=== PATIENT | male | born 1995 | race African-American/Black ===

== ENCOUNTER 2020-04-08 06:30 | Inpatient (IN) | payer MEDICAID, SELFPAY ==
[~2020-04-08] VITALS: Ht 172.7 cm; Wt 73.0 kg
[2020-04-08 08:08] VITALS: BP_SYST 143
[2020-04-08] MEDS ORDERED: KETOROLAC TROMETHAMINE 30 MG VIAL IVP ONE (08:30)
[2020-04-08] MEDS ORDERED: ONDANSETRON HCL 4 MG/2 ML VIAL IVP ONE (08:30)
[2020-04-08] MEDS ORDERED: NACL 0.9% 1,000 ML IV ONE (08:30)
[2020-04-08 09:16] LABS: BASOPHILS # (AUTO) 0.1 K/uL (0.0-0.2); EOSINOPHILS % (AUTO) 0.1 % (0.0-4.0); HEMATOCRIT 57.9 % (36-54); HEMOGLOBIN 18.1 g/dL (14.0-18.0); LYMPHOCYTES # (AUTO) 0.8 K/uL (1.0-5.5); MEAN CORPUSCULAR HEMOGLOBIN 29 pg (27-31); MEAN CORPUSCULAR HGB CONC 31 % (32-36); MEAN CORPUSCULAR VOLUME 92 fL (79.0-98.0); MONOCYTES # (AUTO) 0.5 K/uL (0.0-1.0); MONOCYTES % (AUTO) 5.5 % (1.7-9.3); NEUTROPHILS # (AUTO) 8.1 K/uL (1.8-7.7); NEUTROPHILS % (AUTO) 85.4 % (40.0-70.0); PLATELET COUNT (AUTO) 278 K/uL (130-430); RED CELL DISTRIBUTION WIDTH 13.2 % (9.0-15.0); WHITE BLOOD COUNT (AUTO) 9.5 K/uL (4.8-10.8)
[2020-04-08 09:29] LABS: CALCIUM 10.2 mg/dL (8.4-11.0); CREATININE 1.96 mg/dL (0.55-1.30); POTASSIUM 5.3 mmol/L (3.5-5.1)
[2020-04-08 09:41] LABS: ALBUMIN 4.6 g/dL (3.4-4.8); TOTAL BILIRUBIN 0.5 mg/dL (0.0-1.0)
[2020-04-08] MEDS ORDERED: SODIUM BICARBONATE 8.4% JECT 50 MEQ/50 ML SYRINGE ONE (09:44)
[2020-04-08] MEDS ORDERED: SODIUM BICARBONATE 8.4% JECT 50 MEQ/50 ML SYRINGE IVP ONE (09:45)
[2020-04-08] MEDS ORDERED: PIPERACILLIN/TAZO 3.375 GM in NS 50 ML IV ONE (10:00)
[2020-04-08] MEDS ORDERED: PIPERACILLIN/TAZOBACTAM 3.375 GM/VIAL (ZOSYN) IV ONE (10:13)
[2020-04-08] MEDS ORDERED: INSULIN REGULAR, HUMAN 100 UNITS in NS 99 ML IV ONE ×2 (10:30)
[2020-04-08] MEDS ORDERED: INSULIN REGULAR, HUMAN 10 UNITS/0.1 ML INJ IVP ONE (10:30)
[2020-04-08] MEDS ORDERED: NACL 0.9% 2,000 ML IV ONE (10:45)
[2020-04-08 11:17] LABS: BILIRUBIN,URINE NEGATIVE (NEGATIVE); BLOOD, URINE 1+ (NEGATIVE); CLARITY/URINE CLEAR (CLEAR); COLOR,URINE YELLOW (YELLOW); GLUCOSE,URINE 3+ (NEGATIVE); KETONES,URINE 3+ (NEGATIVE); LEUKOCYTE ESTERASE ,URINE NEGATIVE (NEGATIVE); NITRITE, URINE NEGATIVE (NEGATIVE); PROTEIN URINE 2+ (NEGATIVE); UROBILINOGEN,URINE 0.2 (0.2-1.0)
[2020-04-08 11:26] LABS: BACTERIA,URINE FEW /HPF (None Seen); WBC,URINE 0-3 /HPF (0-3)
[2020-04-08] MEDS ORDERED: ONDANSETRON HCL 4 MG/2 ML VIAL ONE (12:56)
[2020-04-08] MEDS ORDERED: ONDANSETRON HCL 4 MG/2 ML VIAL IM ONE (13:00)
[2020-04-08] MEDS ORDERED: DIPHENHYDRAMINE INJ 50 MG/ML VIAL IVP ONE (14:15)
[2020-04-08] MEDS ORDERED: PROCHLORPERAZINE EDISYLATE 10 MG/2 ML VIAL IVP ONE (14:15)
[2020-04-08] MEDS ORDERED: NALOXONE HCL 0.4 MG/ML AMP (NARCAN) IVP PRN ×2 (14:30)
[2020-04-08] MEDS ORDERED: HYDROcodone/ACETAMIN 10-325 MG TAB PO PRN (14:30)
[2020-04-08] MEDS ORDERED: HYDROcodone/ACETAMIN 5-325 MG TAB (NORCO/ VICODIN) PO PRN (14:30)
[2020-04-08] MEDS: NACL 0.9% 1,000 ML IV SCH ×2 (16:40→19:03)
[2020-04-08] MEDS: PIPERACILLIN/TAZO 3.375/DEX-IS 50 ML IV SCH ×2 (18:55→22:42)
[2020-04-08] MEDS: METOCLOPRAMIDE HCL 10 MG/2 ML VIAL IVP SCH ×2 (18:55→22:42)
[2020-04-09] MEDS ORDERED: SODIUM BICARBONATE 8.4% JECT 50 MEQ/50 ML SYRINGE ONE (01:14)
[2020-04-09] MEDS ORDERED: METOCLOPRAMIDE HCL 10 MG/2 ML VIAL ONE ×2 (05:32→12:22)
[2020-04-09] MEDS: METOCLOPRAMIDE HCL 10 MG/2 ML VIAL IVP SCH ×3 (05:43→18:13)
[2020-04-09] MEDS: PIPERACILLIN/TAZO 3.375/DEX-IS 50 ML IV SCH ×3 (05:44→18:12)
[2020-04-09 10:02] LABS: BASOPHILS % (AUTO) 0.4 % (0.0-2.0); HEMOGLOBIN 15.3 g/dL (14.0-18.0); LYMPHOCYTES # (AUTO) 1.4 K/uL (1.0-5.5); LYMPHOCYTES % (AUTO) 17.1 % (20.5-51.5); MEAN CORPUSCULAR HEMOGLOBIN 28 pg (27-31); MEAN CORPUSCULAR HGB CONC 33 % (32-36); MONOCYTES # (AUTO) 1.1 K/uL (0.0-1.0); MONOCYTES % (AUTO) 13.6 % (1.7-9.3); NEUTROPHILS # (AUTO) 5.6 K/uL (1.8-7.7); NEUTROPHILS % (AUTO) 68.9 % (40.0-70.0); PLATELET COUNT (AUTO) 213 K/uL (130-430); RED BLOOD CELL COUNT(AUTO) 5.41 MIL/uL (4.2-6.2); RED CELL DISTRIBUTION WIDTH 12.9 % (9.0-15.0); WHITE BLOOD COUNT (AUTO) 8.2 K/uL (4.8-10.8)
[2020-04-09 10:05] LABS: MEAN CORPUSCULAR VOLUME 87 fL (79.0-98.0)
[2020-04-09 10:24] LABS: ALBUMIN 3.2 g/dL (3.4-4.8); CALCIUM 8.2 mg/dL (8.4-11.0); CREATININE 1.27 mg/dL (0.55-1.30); PHOSPHORUS 2.4 mg/dL (2.7-4.5); POTASSIUM 3.5 mmol/L (3.5-5.1); TOTAL BILIRUBIN 0.4 mg/dL (0.0-1.0)
[2020-04-09] MEDS ORDERED: SODIUM BICARBONATE 8.4% IV ONE ×3 (11:30)
[2020-04-09] MEDS ORDERED: JECT IV ONE ×3 (11:30)
[2020-04-09] MEDS ORDERED: NS 0.45% IV ONE ×3 (11:30)
[2020-04-09] MEDS ORDERED: HYDROcodone/ACETAMIN 5-325 MG TAB (NORCO/ VICODIN) ONE (12:33)
[2020-04-09] MEDS: NACL 0.9% 1,000 ML IV SCH (13:35)
[2020-04-09] MEDS ORDERED: INSULIN Lispro 100 UNITS/ML VIAL (humaLOG) ONE (14:56)
[2020-04-09] MEDS ORDERED: INSULIN REGULAR, HUMAN 100 UNITS in NS 99 ML IV PRN ×2 (16:15)
[2020-04-09] MEDS ORDERED: MORPHINE 2 MG/ML INJ. SYRINGE ONE (16:20)
[2020-04-09] MEDS: MORPHINE 2 MG/ML INJ. SYRINGE IVP PRN (17:09)
[2020-04-09] MEDS ORDERED: PIPERACILLIN/TAZOBACTAM 3.375 GM/VIAL (ZOSYN) IV ONE (18:02)
[2020-04-10] MEDS ORDERED: PIPERACILLIN/TAZOBACTAM 3.375 GM/VIAL (ZOSYN) IV ONE (00:34)
[2020-04-10] MEDS ORDERED: METOCLOPRAMIDE HCL 10 MG/2 ML VIAL ONE ×2 (00:35→05:43)
[2020-04-10] MEDS: METOCLOPRAMIDE HCL 10 MG/2 ML VIAL IVP SCH ×5 (00:58→23:38)
[2020-04-10] MEDS: PIPERACILLIN/TAZO 3.375/DEX-IS 50 ML IV SCH ×4 (00:59→18:05)
[2020-04-10 05:11] LABS: BASOPHILS % (AUTO) 0.5 % (0.0-2.0); HEMATOCRIT 45.7 % (36-54); HEMOGLOBIN 14.8 g/dL (14.0-18.0); LYMPHOCYTES % (AUTO) 11.6 % (20.5-51.5); MEAN CORPUSCULAR HEMOGLOBIN 29 pg (27-31); MEAN CORPUSCULAR HGB CONC 32 % (32-36); MEAN CORPUSCULAR VOLUME 88 fL (79.0-98.0); MONOCYTES # (AUTO) 1.1 K/uL (0.0-1.0); NEUTROPHILS # (AUTO) 6.7 K/uL (1.8-7.7); NEUTROPHILS % (AUTO) 75.9 % (40.0-70.0); PLATELET COUNT (AUTO) 171 K/uL (130-430); RED CELL DISTRIBUTION WIDTH 13.1 % (9.0-15.0); WHITE BLOOD COUNT (AUTO) 8.8 K/uL (4.8-10.8)
[2020-04-10 05:25] LABS: ANION GAP 25 (5-15); C-REACTIVE PROTEIN QUANT < 0.2 mg/dL (0-0.5); CALCIUM 7.7 mg/dL (8.4-11.0); CHLORIDE 102 mmol/L (98-107); CREATININE 1.32 mg/dL (0.55-1.30); GLUCOSE 214 mg/dL (70-99); PHOSPHORUS 1.9 mg/dL (2.7-4.5); POTASSIUM 3.8 mmol/L (3.5-5.1); SODIUM SERUM 139 mmol/L (136-145); UREA NITROGEN, BLOOD 7 mg/dL (8-21)
[2020-04-10 05:29] LABS: GFR AFRICAN AMERICAN 86 mL/min (>90)
[2020-04-10] MEDS ORDERED: LORazepam 2 MG/ML VIAL ONE (05:43)
[2020-04-10] MEDS: LORazepam 2 MG/ML VIAL IVP PRN (05:57)
[2020-04-10] MEDS: NACL 0.9% 1,000 ML IV SCH ×3 (05:58→15:41)
[2020-04-10 06:23] LABS: ERYTHROCYTE SEDIMENTATION RATE 7 MM/HR (0-15)
[2020-04-10] MEDS ORDERED: ONDANSETRON HCL 4 MG/2 ML VIAL ONE (09:48)
[2020-04-10] MEDS: ONDANSETRON HCL 4 MG/2 ML VIAL IVP PRN ×2 (09:52→21:00)
[2020-04-10] MEDS ORDERED: NA PHOS 30 MM in NS 250 ML IV ONE (16:00)
[2020-04-10 17:01] VITALS: BP_SYST 128
[2020-04-10] MEDS: INSULIN REGULAR, HUMAN 100 UNITS/ML, 10 ML VIAL (humuLIN R) SUBCUT PRN ×2 (18:07→20:47)
[2020-04-10 20:00] VITALS: BP_SYST 127
[2020-04-11] VITALS (13 sets, daily range): BP systolic 119–139
[2020-04-11] MEDS: MORPHINE 2 MG/ML INJ. SYRINGE IVP PRN ×2 (01:10→17:32)
[2020-04-11] MEDS: NACL 0.9% 1,000 ML IV SCH ×3 (02:30→20:36)
[2020-04-11] MEDS: PIPERACILLIN/TAZO 3.375/DEX-IS 50 ML IV SCH ×4 (05:00→22:48)
[2020-04-11] MEDS: LORazepam 2 MG/ML VIAL IVP PRN ×4 (05:00→18:14)
[2020-04-11] MEDS: INSULIN REGULAR, HUMAN 100 UNITS/ML, 10 ML VIAL (humuLIN R) SUBCUT PRN ×3 (06:45→14:06)
[2020-04-11] MEDS: METOCLOPRAMIDE HCL 10 MG/2 ML VIAL IVP SCH ×3 (06:55→18:11)
[2020-04-11 08:20] LABS: BASOPHILS % (AUTO) 0.2 % (0.0-2.0); HEMATOCRIT 49.9 % (36-54); HEMOGLOBIN 15.9 g/dL (14.0-18.0); LYMPHOCYTES # (AUTO) 0.4 K/uL (1.0-5.5); LYMPHOCYTES % (AUTO) 4.1 % (20.5-51.5); MEAN CORPUSCULAR HEMOGLOBIN 29 pg (27-31); MEAN CORPUSCULAR HGB CONC 32 % (32-36); MEAN CORPUSCULAR VOLUME 90 fL (79.0-98.0); MONOCYTES % (AUTO) 10.1 % (1.7-9.3); NEUTROPHILS # (AUTO) 8.3 K/uL (1.8-7.7); NEUTROPHILS % (AUTO) 85.6 % (40.0-70.0); PLATELET COUNT (AUTO) 170 K/uL (130-430); RED BLOOD CELL COUNT(AUTO) 5.55 MIL/uL (4.2-6.2); RED CELL DISTRIBUTION WIDTH 13.4 % (9.0-15.0); WHITE BLOOD COUNT (AUTO) 9.7 K/uL (4.8-10.8)
[2020-04-11 08:37] LABS: ALANINE AMINOTRANSFERASE 22 U/L (12-78); ALBUMIN 3.5 g/dL (3.4-4.8); ANION GAP 31 (5-15); ASPARTATE AMINOTRANSFERASE 17 U/L (10-37); CALCIUM 8.2 mg/dL (8.4-11.0); CHLORIDE 100 mmol/L (98-107); CREATININE 1.27 mg/dL (0.55-1.30); GLUCOSE 271 mg/dL (70-99); POTASSIUM 4.5 mmol/L (3.5-5.1); SODIUM SERUM 136 mmol/L (136-145); TOTAL BILIRUBIN 0.3 mg/dL (0.0-1.0); UREA NITROGEN, BLOOD 9 mg/dL (8-21)
[2020-04-11 08:54] LABS: C-REACTIVE PROTEIN QUANT 2.6 mg/dL (0-0.5)
[2020-04-11 09:06] LABS: GFR AFRICAN AMERICAN 90 mL/min (>90)
[2020-04-11] MEDS: ONDANSETRON HCL 4 MG/2 ML VIAL IVP PRN (10:15)
[2020-04-11] MEDS ORDERED: NACL 0.9% 1,000 ML IV ONE (10:30)
[2020-04-11] MEDS ORDERED: DEXTROSE 50% JECT 50 ML DISP.SYRIN IVP PRN (11:30)
[2020-04-11] MEDS ORDERED: SODIUM BICARBONATE 8.4% JECT 50 MEQ/50 ML SYRINGE IVP ONE (12:45)
[2020-04-11 13:04] LABS: BASOPHILS # (AUTO) 0.1 K/uL (0.0-0.2); BASOPHILS % (AUTO) 0.6 % (0.0-2.0); HEMATOCRIT 51.2 % (36-54); HEMOGLOBIN 16.2 g/dL (14.0-18.0); LYMPHOCYTES # (AUTO) 0.8 K/uL (1.0-5.5); LYMPHOCYTES % (AUTO) 7.6 % (20.5-51.5); MEAN CORPUSCULAR HEMOGLOBIN 28 pg (27-31); MEAN CORPUSCULAR HGB CONC 32 % (32-36); MEAN CORPUSCULAR VOLUME 90 fL (79.0-98.0); MONOCYTES # (AUTO) 0.9 K/uL (0.0-1.0); MONOCYTES % (AUTO) 8.7 % (1.7-9.3); NEUTROPHILS # (AUTO) 8.3 K/uL (1.8-7.7); NEUTROPHILS % (AUTO) 83.1 % (40.0-70.0); PLATELET COUNT (AUTO) 169 K/uL (130-430); RED BLOOD CELL COUNT(AUTO) 5.72 MIL/uL (4.2-6.2); RED CELL DISTRIBUTION WIDTH 13.5 % (9.0-15.0)
[2020-04-11 13:31] LABS: ERYTHROCYTE SEDIMENTATION RATE 12 MM/HR (0-15)
[2020-04-11 13:36] LABS: ALANINE AMINOTRANSFERASE 26 U/L (12-78); ALBUMIN 3.3 g/dL (3.4-4.8); ANION GAP 28 (5-15); ASPARTATE AMINOTRANSFERASE 14 U/L (10-37); CALCIUM 8.1 mg/dL (8.4-11.0); CHLORIDE 104 mmol/L (98-107); CREATININE 1.27 mg/dL (0.55-1.30); GLUCOSE 258 mg/dL (70-99); POTASSIUM 4.3 mmol/L (3.5-5.1); SODIUM SERUM 137 mmol/L (136-145); TOTAL BILIRUBIN 0.5 mg/dL (0.0-1.0); UREA NITROGEN, BLOOD 11 mg/dL (8-21)
[2020-04-11 13:37] LABS: GFR AFRICAN AMERICAN 90 mL/min (>90)
[2020-04-11 13:44] LABS: ACETONE, SERUM POSITIVE (NEGATIVE)
[2020-04-11 14:20] LABS: BILIRUBIN,URINE NEGATIVE (NEGATIVE); BLOOD, URINE 1+ (NEGATIVE); CLARITY/URINE CLEAR (CLEAR); GLUCOSE,URINE 2+ (NEGATIVE); KETONES,URINE 3+ (NEGATIVE); LEUKOCYTE ESTERASE ,URINE NEGATIVE (NEGATIVE); NITRITE, URINE NEGATIVE (NEGATIVE); PROTEIN URINE 2+ (NEGATIVE); UROBILINOGEN,URINE 0.2 (0.2-1.0)
[2020-04-11 14:22] LABS: COLOR,URINE STRAW (YELLOW)
[2020-04-11 14:44] LABS: BACTERIA,URINE None Seen /HPF (None Seen); COARSE GRANULAR CASTS,URINE 0-10 /LPF (None Seen); WBC,URINE 0-3 /HPF (0-3)
[2020-04-11] MEDS: INSULIN REGULAR, HUMAN 100 UNITS in NS 99 ML IV PRN ×4 (16:00→21:31)
[2020-04-11] MEDS: MORPHINE 4 MG/ML INJ. SYRINGE IVP PRN (16:31)
[2020-04-11 20:14] LABS: CALCIUM 8.5 mg/dL (8.4-11.0); CREATININE 1.23 mg/dL (0.55-1.30)
[2020-04-11] MEDS ORDERED: PIPERACILLIN/TAZOBACTAM 3.375 GM/VIAL (ZOSYN) IV ONE (22:13)
[2020-04-12] VITALS (30 sets, daily range): BP systolic 65–147
[2020-04-12 01:25] LABS: CREATININE 1.41 mg/dL (0.55-1.30); POTASSIUM 4.3 mmol/L (3.5-5.1)
[2020-04-12] MEDS: NACL 0.9% 1,000 ML IV SCH (02:26)
[2020-04-12] MEDS: PIPERACILLIN/TAZO 3.375/DEX-IS 50 ML IV SCH ×4 (04:28→22:09)
[2020-04-12] MEDS: INSULIN REGULAR, HUMAN 100 UNITS in NS 99 ML IV PRN ×6 (04:29→22:46)
[2020-04-12] MEDS: METOCLOPRAMIDE HCL 10 MG/2 ML VIAL IVP SCH ×4 (05:53→18:27)
[2020-04-12 07:46] LABS: BASOPHILS % (AUTO) 0.3 % (0.0-2.0); HEMATOCRIT 43.3 % (36-54); HEMOGLOBIN 13.8 g/dL (14.0-18.0); LYMPHOCYTES # (AUTO) 0.8 K/uL (1.0-5.5); LYMPHOCYTES % (AUTO) 6.8 % (20.5-51.5); MEAN CORPUSCULAR HEMOGLOBIN 28 pg (27-31); MEAN CORPUSCULAR HGB CONC 32 % (32-36); MEAN CORPUSCULAR VOLUME 88 fL (79.0-98.0); MONOCYTES # (AUTO) 1.4 K/uL (0.0-1.0); MONOCYTES % (AUTO) 12.9 % (1.7-9.3); NEUTROPHILS # (AUTO) 8.9 K/uL (1.8-7.7); PLATELET COUNT (AUTO) 142 K/uL (130-430); RED BLOOD CELL COUNT(AUTO) 4.91 MIL/uL (4.2-6.2); RED CELL DISTRIBUTION WIDTH 13.2 % (9.0-15.0); WHITE BLOOD COUNT (AUTO) 11.1 K/uL (4.8-10.8)
[2020-04-12 07:54] LABS: ALANINE AMINOTRANSFERASE 15 U/L (12-78); ALBUMIN 2.8 g/dL (3.4-4.8); ANION GAP 24 (5-15); ASPARTATE AMINOTRANSFERASE 15 U/L (10-37); CALCIUM 8.6 mg/dL (8.4-11.0); CHLORIDE 111 mmol/L (98-107); GLUCOSE 242 mg/dL (70-99); PHOSPHORUS 1.4 mg/dL (2.7-4.5); POTASSIUM 3.7 mmol/L (3.5-5.1); SODIUM SERUM 144 mmol/L (136-145); TOTAL BILIRUBIN 0.5 mg/dL (0.0-1.0); UREA NITROGEN, BLOOD 12 mg/dL (8-21)
[2020-04-12 08:11] LABS: GFR AFRICAN AMERICAN 75 mL/min (>90)
[2020-04-12 08:14] LABS: C-REACTIVE PROTEIN QUANT 5.3 mg/dL (0-0.5)
[2020-04-12] MEDS: MORPHINE 4 MG/ML INJ. SYRINGE IVP PRN ×2 (09:44→12:34)
[2020-04-12] MEDS: D5NS 1,000 ML IV SCH ×2 (10:30→16:45)
[2020-04-12] MEDS ORDERED: NOREPINEPHRINE BITARTRATE 4 MG in D5W 246 ML IV PRN (11:45)
[2020-04-12] MEDS ORDERED: *HEPARIN PER PHARMACY XX PRN (11:45)
[2020-04-12 11:48] LABS: ERYTHROCYTE SEDIMENTATION RATE 14 MM/HR (0-15)
[2020-04-12] MEDS ORDERED: NALOXONE HCL 0.4 MG/ML AMP (NARCAN) IVP PRN ×2 (12:30→13:30)
[2020-04-12] MEDS: ACETAMINOPHEN 325 MG TABLET PO PRN ×3 (12:32→22:16)
[2020-04-12 13:15] LABS: CALCIUM 7.5 mg/dL (8.4-11.0); CREATININE 1.85 mg/dL (0.55-1.30); PHOSPHORUS 2.8 mg/dL (2.7-4.5); POTASSIUM 4.1 mmol/L (3.5-5.1)
[2020-04-12] MEDS ORDERED: MORPHINE I.V. DRIP 100 ML IV ONE (13:20)
[2020-04-12] MEDS ORDERED: MORPHINE I.V. DRIP 100 ML IV PRN (13:30)
[2020-04-12] MEDS ORDERED: NOREPINEPHRINE BITARTRATE 4 MG in NS 246 ML IV PRN (13:45)
[2020-04-12] MEDS ORDERED: NOREPINEPHRINE 4 MG/4 ML VIAL IV ONE ×2 (14:15→22:37)
[2020-04-12] MEDS ORDERED: HEPARIN SODIUM,PORCINE 5,000 UNITS/ML VIAL IV ONE (14:30)
[2020-04-12] MEDS ORDERED: HEPARIN SODIUM,PORCINE 3000 UNITS/0.6 ML BOLUS IVP PRN (14:30)
[2020-04-12] MEDS ORDERED: HEPARIN SODIUM,PORCINE 2000 UNITS/0.4 ML BOLUS IVP PRN (14:30)
[2020-04-12] MEDS: DEXAMETHASONE SOD PHOSPHATE 10 MG/ML VIAL IVP SCH (16:38)
[2020-04-12] MEDS ORDERED: NOREPINEPHRINE BITARTRATE 32 MG in NS 218 ML IV PRN (20:30)
[2020-04-12] MEDS: MORPHINE I.V. DRIP 100 ML IV PRN (20:34)
[2020-04-12 22:39] LABS: CREATININE 2.81 mg/dL (0.55-1.30)
[2020-04-12 22:42] LABS: PHOSPHORUS 0.5 mg/dL (2.7-4.5); POTASSIUM 2.9 mmol/L (3.5-5.1)
[2020-04-12] MEDS ORDERED: POTASSIUM CHLORIDE 20 MEQ TAB.PRT.SR PO ONE (23:15)
[2020-04-12] MEDS ORDERED: KCL 40 mEq in 100 mL (PREMIX) 100 ML IV PRN (23:30)
[2020-04-12] MEDS ORDERED: MAGNESIUM SULFATE 50 ML IV PRN (23:30)
[2020-04-12] MEDS ORDERED: POTASSIUM CHLORIDE 20 MEQ TAB.PRT.SR ONE (23:47)
[2020-04-13] VITALS (30 sets, daily range): BP systolic 75–162
[2020-04-13] MEDS: NAPH,MB-DB/K PH,MBDB 250 MG TAB PO PRN (00:10)
[2020-04-13] MEDS: HEPARIN 25,000 UNITS in 250 ML PREMIX IV PRN (00:13)
[2020-04-13] MEDS: D5NS 1,000 ML IV SCH ×4 (00:35→16:59)
[2020-04-13] MEDS: INSULIN REGULAR, HUMAN 100 UNITS in NS 99 ML IV PRN ×6 (00:49→20:24)
[2020-04-13] MEDS: PIPERACILLIN/TAZO 3.375/DEX-IS 50 ML IV SCH ×4 (04:58→20:43)
[2020-04-13] MEDS: METOCLOPRAMIDE HCL 10 MG/2 ML VIAL IVP SCH ×4 (04:59→18:00)
[2020-04-13] MEDS: MORPHINE I.V. DRIP 100 ML IV PRN ×2 (05:01→15:11)
[2020-04-13] MEDS: PROPOFOL DRIP 100 ML IV PRN ×2 (05:21→12:49)
[2020-04-13 07:36] LABS: BASOPHILS % (AUTO) 0.4 % (0.0-2.0); HEMATOCRIT 36.1 % (36-54); HEMOGLOBIN 11.8 g/dL (14.0-18.0); LYMPHOCYTES # (AUTO) 0.7 K/uL (1.0-5.5); LYMPHOCYTES % (AUTO) 6.8 % (20.5-51.5); MEAN CORPUSCULAR HEMOGLOBIN 28 pg (27-31); MEAN CORPUSCULAR HGB CONC 33 % (32-36); MEAN CORPUSCULAR VOLUME 86 fL (79.0-98.0); MONOCYTES # (AUTO) 0.9 K/uL (0.0-1.0); MONOCYTES % (AUTO) 8.3 % (1.7-9.3); NEUTROPHILS % (AUTO) 84.5 % (40.0-70.0); PLATELET COUNT (AUTO) 104 K/uL (130-430); RED BLOOD CELL COUNT(AUTO) 4.17 MIL/uL (4.2-6.2); RED CELL DISTRIBUTION WIDTH 13.2 % (9.0-15.0); WHITE BLOOD COUNT (AUTO) 10.6 K/uL (4.8-10.8)
[2020-04-13 10:47] LABS: ERYTHROCYTE SEDIMENTATION RATE 27 MM/HR (0-15)
[2020-04-13] MEDS: DEXAMETHASONE SOD PHOSPHATE 10 MG/ML VIAL IVP SCH (11:23)
[2020-04-13] MEDS: ACETAMINOPHEN 325 MG TABLET PO PRN (11:31)
[2020-04-13 12:05] LABS: CALCIUM 8.4 mg/dL (8.4-11.0); CREATININE 2.27 mg/dL (0.55-1.30)
[2020-04-13 12:18] LABS: PHOSPHORUS 0.4 mg/dL (2.7-4.5)
[2020-04-13] MEDS ORDERED: COMMUNICATION ORDER XX ONE ×2 (12:45→15:15)
[2020-04-13] MEDS ORDERED: POTASSIUM CHLORIDE 60 MEQ in D5W 500 ML IV SCH (14:00)
[2020-04-13] MEDS ORDERED: POTASSIUM CHLORIDE 20 MEQ/PKT PACKET NG ONE (15:00)
[2020-04-13] MEDS ORDERED: MAGNESIUM SULFATE 50 ML IV ONE (15:00)
[2020-04-13] MEDS ORDERED: K PHOS 30 MM in NS 250 ML IV ONE (16:00)
[2020-04-13 19:12] LABS: CALCIUM 8.2 mg/dL (8.4-11.0); CREATININE 2.04 mg/dL (0.55-1.30)
[2020-04-13] MEDS: NAPH,MB-DB/K PH,MBDB 250 MG TAB PO SCH ×2 (19:44→22:54)
[2020-04-13] MEDS ORDERED: NAPH,MB-DB/K PH,MBDB 250 MG TAB ONE (22:27)
[2020-04-14] VITALS (26 sets, daily range): BP systolic 110–152
[2020-04-14] MEDS: MORPHINE I.V. DRIP 100 ML IV PRN ×2 (00:31→09:13)
[2020-04-14] MEDS: INSULIN REGULAR, HUMAN 100 UNITS in NS 99 ML IV PRN ×8 (00:34→22:17)
[2020-04-14] MEDS: D5NS 1,000 ML IV SCH ×2 (00:35→08:15)
[2020-04-14] MEDS: NAPH,MB-DB/K PH,MBDB 250 MG TAB PO SCH ×4 (04:46→14:02)
[2020-04-14] MEDS: PIPERACILLIN/TAZO 3.375/DEX-IS 50 ML IV SCH ×4 (04:47→22:16)
[2020-04-14] MEDS ORDERED: NAPH,MB-DB/K PH,MBDB 250 MG TAB ONE ×2 (05:02→05:04)
[2020-04-14] MEDS: METOCLOPRAMIDE HCL 10 MG/2 ML VIAL IVP SCH ×4 (05:47→18:00)
[2020-04-14 07:11] LABS: BASOPHILS % (AUTO) 0.2 % (0.0-2.0); EOSINOPHILS % (AUTO) 0.3 % (0.0-4.0); HEMATOCRIT 33.7 % (36-54); LYMPHOCYTES # (AUTO) 1.1 K/uL (1.0-5.5); LYMPHOCYTES % (AUTO) 10.5 % (20.5-51.5); MEAN CORPUSCULAR HEMOGLOBIN 28 pg (27-31); MEAN CORPUSCULAR HGB CONC 33 % (32-36); MEAN CORPUSCULAR VOLUME 86 fL (79.0-98.0); MONOCYTES # (AUTO) 0.9 K/uL (0.0-1.0); NEUTROPHILS # (AUTO) 8.3 K/uL (1.8-7.7); PLATELET COUNT (AUTO) 121 K/uL (130-430); RED CELL DISTRIBUTION WIDTH 13.4 % (9.0-15.0); WHITE BLOOD COUNT (AUTO) 10.4 K/uL (4.8-10.8)
[2020-04-14 08:28] LABS: ALBUMIN 1.9 g/dL (3.4-4.8); CALCIUM 8.4 mg/dL (8.4-11.0); CREATININE 1.58 mg/dL (0.55-1.30); PHOSPHORUS 1.1 mg/dL (2.7-4.5); TOTAL BILIRUBIN 0.3 mg/dL (0.0-1.0)
[2020-04-14] MEDS: PROPOFOL DRIP 100 ML IV PRN ×2 (09:12→18:46)
[2020-04-14] MEDS ORDERED: D5W 500 ML IV ONE (10:45)
[2020-04-14] MEDS: DEXAMETHASONE SOD PHOSPHATE 10 MG/ML VIAL IVP SCH (11:05)
[2020-04-14 11:18] LABS: ERYTHROCYTE SEDIMENTATION RATE 50 MM/HR (0-15)
[2020-04-14] MEDS: LORazepam 2 MG/ML VIAL IVP PRN (11:44)
[2020-04-14 12:23] LABS: C-REACTIVE PROTEIN QUANT 17.1 mg/dL (0-0.5)
[2020-04-14] MEDS: KCL 10 mEq in D5/0.45NS 1000mL 1,000 ML IV SCH ×2 (14:04→19:43)
[2020-04-14] MEDS ORDERED: K PHOS 30 MM in NS 250 ML IV ONE (19:15)
[2020-04-15] VITALS (28 sets, daily range): BP systolic 106–162
[2020-04-15] MEDS: HEPARIN 25,000 UNITS in 250 ML PREMIX IV PRN (00:21)
[2020-04-15] MEDS: PIPERACILLIN/TAZO 3.375/DEX-IS 50 ML IV SCH ×4 (04:59→22:00)
[2020-04-15] MEDS: METOCLOPRAMIDE HCL 10 MG/2 ML VIAL IVP SCH ×4 (06:00→18:01)
[2020-04-15] MEDS: PROPOFOL DRIP 100 ML IV PRN ×2 (06:34→08:23)
[2020-04-15] MEDS: MORPHINE I.V. DRIP 100 ML IV PRN (06:35)
[2020-04-15 07:02] LABS: BASOPHILS # (AUTO) 0.1 K/uL (0.0-0.2); BASOPHILS % (AUTO) 0.5 % (0.0-2.0); EOSINOPHILS % (AUTO) 0.2 % (0.0-4.0); HEMATOCRIT 28.7 % (36-54); HEMOGLOBIN 9.7 g/dL (14.0-18.0); LYMPHOCYTES # (AUTO) 1.1 K/uL (1.0-5.5); LYMPHOCYTES % (AUTO) 11.2 % (20.5-51.5); MEAN CORPUSCULAR HEMOGLOBIN 29 pg (27-31); MEAN CORPUSCULAR HGB CONC 34 % (32-36); MEAN CORPUSCULAR VOLUME 84 fL (79.0-98.0); MONOCYTES # (AUTO) 0.8 K/uL (0.0-1.0); MONOCYTES % (AUTO) 7.5 % (1.7-9.3); NEUTROPHILS # (AUTO) 8.2 K/uL (1.8-7.7); NEUTROPHILS % (AUTO) 80.6 % (40.0-70.0); PLATELET COUNT (AUTO) 190 K/uL (130-430); RED BLOOD CELL COUNT(AUTO) 3.41 MIL/uL (4.2-6.2); RED CELL DISTRIBUTION WIDTH 13.3 % (9.0-15.0); WHITE BLOOD COUNT (AUTO) 10.2 K/uL (4.8-10.8)
[2020-04-15 07:50] LABS: CALCIUM 7.7 mg/dL (8.4-11.0); CREATININE 1.23 mg/dL (0.55-1.30); POTASSIUM 3.1 mmol/L (3.5-5.1)
[2020-04-15 10:33] LABS: C-REACTIVE PROTEIN QUANT 13.1 mg/dL (0-0.5)
[2020-04-15 11:15] LABS: ERYTHROCYTE SEDIMENTATION RATE 81 MM/HR (0-15)
[2020-04-15] MEDS: DEXAMETHASONE SOD PHOSPHATE 10 MG/ML VIAL IVP SCH (11:48)
[2020-04-15] MEDS ORDERED: SODIUM BICARBONATE 8.4% JECT 50 MEQ in D5W 1,000 ML IVP SCH (13:00)
[2020-04-15] MEDS: INSULIN REGULAR, HUMAN 100 UNITS in NS 99 ML IV PRN ×2 (13:56)
[2020-04-15] MEDS: HEPARIN SODIUM,PORCINE 5,000 UNITS/ML VIAL SUBCUT SCH (14:31)
[2020-04-15] MEDS ORDERED: KCL 40 mEq in 100 mL (PREMIX) 100 ML IV ONE (19:30)
[2020-04-15] MEDS ORDERED: PROPOFOL 200MG/ 20ML VIAL (DIPRIVAN) IV PRN (23:15)
[2020-04-16] VITALS (14 sets, daily range): BP systolic 109–143
[2020-04-16] MEDS: HEPARIN SODIUM,PORCINE 5,000 UNITS/ML VIAL SUBCUT SCH ×4 (01:55→23:22)
[2020-04-16 07:01] LABS: BASOPHILS # (AUTO) 0.1 K/uL (0.0-0.2); BASOPHILS % (AUTO) 0.6 % (0.0-2.0); EOSINOPHILS # (AUTO) 0.1 K/uL (0.0-0.4); EOSINOPHILS % (AUTO) 0.5 % (0.0-4.0); HEMATOCRIT 30.3 % (36-54); HEMOGLOBIN 9.9 g/dL (14.0-18.0); LYMPHOCYTES # (AUTO) 1.2 K/uL (1.0-5.5); LYMPHOCYTES % (AUTO) 9.6 % (20.5-51.5); MEAN CORPUSCULAR HEMOGLOBIN 28 pg (27-31); MEAN CORPUSCULAR HGB CONC 33 % (32-36); MEAN CORPUSCULAR VOLUME 86 fL (79.0-98.0); MONOCYTES # (AUTO) 1.1 K/uL (0.0-1.0); MONOCYTES % (AUTO) 8.6 % (1.7-9.3); NEUTROPHILS # (AUTO) 10.5 K/uL (1.8-7.7); NEUTROPHILS % (AUTO) 80.7 % (40.0-70.0); PLATELET COUNT (AUTO) 262 K/uL (130-430); RED BLOOD CELL COUNT(AUTO) 3.51 MIL/uL (4.2-6.2); RED CELL DISTRIBUTION WIDTH 14.1 % (9.0-15.0)
[2020-04-16 07:34] LABS: ALBUMIN 1.8 g/dL (3.4-4.8); CALCIUM 8.3 mg/dL (8.4-11.0); CREATININE 1.24 mg/dL (0.55-1.30); PHOSPHORUS 2.8 mg/dL (2.7-4.5); POTASSIUM 3.5 mmol/L (3.5-5.1); TOTAL BILIRUBIN 0.4 mg/dL (0.0-1.0)
[2020-04-16 08:41] LABS: C-REACTIVE PROTEIN QUANT 9.1 mg/dL (0-0.5)
[2020-04-16 09:22] LABS: ERYTHROCYTE SEDIMENTATION RATE 98 MM/HR (0-15)
[2020-04-16] MEDS: PIPERACILLIN/TAZO 3.375/DEX-IS 50 ML IV SCH ×2 (09:56→15:49)
[2020-04-16] MEDS: METOCLOPRAMIDE HCL 10 MG/2 ML VIAL IVP SCH ×4 (12:42→23:18)
[2020-04-16] MEDS: DEXAMETHASONE SOD PHOSPHATE 10 MG/ML VIAL IVP SCH (12:42)
[2020-04-16] MEDS: ACETAMINOPHEN 325 MG TABLET PO PRN ×2 (14:14→18:30)
[2020-04-16] MEDS: PROPOFOL DRIP 100 ML IV PRN ×2 (15:46→20:42)
[2020-04-16] MEDS ORDERED: AZITHROMYCIN 500 MG in NS 250 ML IV ONE (18:30)
[2020-04-16] MEDS: CEFEPIME 2 GM in D5W 100 ML IV SCH (20:23)
[2020-04-16] MEDS: INSULIN REGULAR, HUMAN 100 UNITS in NS 99 ML IV PRN ×2 (20:43)
[2020-04-16] MEDS: MORPHINE I.V. DRIP 100 ML IV PRN (20:44)
[2020-04-16] MEDS: metroNIDAZOLE 500 mg/NS 100 ML IV SCH (23:17)
[2020-04-17] VITALS (27 sets, daily range): BP systolic 104–136
[2020-04-17 05:11] LABS: BASOPHILS % (AUTO) 0.2 % (0.0-2.0); EOSINOPHILS % (AUTO) 0.1 % (0.0-4.0); HEMATOCRIT 28.5 % (36-54); HEMOGLOBIN 9.4 g/dL (14.0-18.0); LYMPHOCYTES # (AUTO) 1.6 K/uL (1.0-5.5); MEAN CORPUSCULAR HEMOGLOBIN 28 pg (27-31); MEAN CORPUSCULAR HGB CONC 33 % (32-36); MEAN CORPUSCULAR VOLUME 85 fL (79.0-98.0); MONOCYTES # (AUTO) 1.4 K/uL (0.0-1.0); MONOCYTES % (AUTO) 10.1 % (1.7-9.3); NEUTROPHILS # (AUTO) 10.6 K/uL (1.8-7.7); NEUTROPHILS % (AUTO) 77.6 % (40.0-70.0); PLATELET COUNT (AUTO) 298 K/uL (130-430); RED BLOOD CELL COUNT(AUTO) 3.35 MIL/uL (4.2-6.2); RED CELL DISTRIBUTION WIDTH 13.8 % (9.0-15.0); WHITE BLOOD COUNT (AUTO) 13.7 K/uL (4.8-10.8)
[2020-04-17] MEDS ORDERED: 0.45% NACL 1,000 ML IV SCH (05:15)
[2020-04-17 05:27] LABS: CALCIUM 8.7 mg/dL (8.4-11.0); POTASSIUM 3.4 mmol/L (3.5-5.1)
[2020-04-17 05:40] LABS: CREATININE 1.18 mg/dL (0.55-1.30)
[2020-04-17] MEDS: metroNIDAZOLE 500 mg/NS 100 ML IV SCH ×3 (06:11→22:00)
[2020-04-17] MEDS: HEPARIN SODIUM,PORCINE 5,000 UNITS/ML VIAL SUBCUT SCH ×2 (06:11→14:00)
[2020-04-17] MEDS: METOCLOPRAMIDE HCL 10 MG/2 ML VIAL IVP SCH ×3 (06:11→18:04)
[2020-04-17 10:12] LABS: ERYTHROCYTE SEDIMENTATION RATE 111 MM/HR (0-15)
[2020-04-17 10:47] LABS: C-REACTIVE PROTEIN QUANT 15.9 mg/dL (0-0.5)
[2020-04-17] MEDS: PROPOFOL DRIP 100 ML IV PRN (12:19)
[2020-04-17] MEDS: DEXAMETHASONE SOD PHOSPHATE 10 MG/ML VIAL IVP SCH (12:20)
[2020-04-17] MEDS: NAPH,MB-DB/K PH,MBDB 250 MG TAB PO PRN (12:20)
[2020-04-17] MEDS: CEFEPIME 2 GM in D5W 100 ML IV SCH ×2 (12:22→21:00)
[2020-04-17] MEDS ORDERED: SUCCINYLCHOLINE CHLORIDE 20 MG/ML(QUELICIN) IVP ONE (12:26)
[2020-04-17] MEDS ORDERED: ETOMIDATE 20 MG/ 10 ML VIAL (AMIDATE) IVP ONE (12:26)
[2020-04-17] MEDS ORDERED: KCL 20 mEq in 100 mL (PREMIX) 100 ML IV ONE (15:45)
[2020-04-17] MEDS: D5W 1,000 ML IV SCH (18:27)
[2020-04-17] MEDS: AZITHROMYCIN 250 MG in NS 250 ML IV SCH (19:45)
[2020-04-17] MEDS: LORazepam 2 MG/ML VIAL IVP PRN (20:27)
[2020-04-18] VITALS (25 sets, daily range): BP systolic 114–142
[2020-04-18] MEDS: METOCLOPRAMIDE HCL 10 MG/2 ML VIAL IVP SCH ×5 (00:30→23:51)
[2020-04-18] MEDS: LORazepam 2 MG/ML VIAL IVP PRN ×2 (00:30→23:51)
[2020-04-18] MEDS: D5W 1,000 ML IV SCH ×3 (03:08→18:08)
[2020-04-18] MEDS: HEPARIN SODIUM,PORCINE 5,000 UNITS/ML VIAL SUBCUT SCH ×3 (06:00→22:08)
[2020-04-18] MEDS: metroNIDAZOLE 500 mg/NS 100 ML IV SCH ×3 (06:00→22:05)
[2020-04-18 06:31] LABS: BASOPHILS # (AUTO) 0.2 K/uL (0.0-0.2); BASOPHILS % (AUTO) 1.2 % (0.0-2.0); HEMATOCRIT 30.6 % (36-54); HEMOGLOBIN 9.9 g/dL (14.0-18.0); LYMPHOCYTES % (AUTO) 7.2 % (20.5-51.5); MEAN CORPUSCULAR HEMOGLOBIN 28 pg (27-31); MEAN CORPUSCULAR HGB CONC 32 % (32-36); MEAN CORPUSCULAR VOLUME 87 fL (79.0-98.0); MONOCYTES # (AUTO) 1.3 K/uL (0.0-1.0); MONOCYTES % (AUTO) 10.1 % (1.7-9.3); NEUTROPHILS # (AUTO) 10.7 K/uL (1.8-7.7); NEUTROPHILS % (AUTO) 81.5 % (40.0-70.0); PLATELET COUNT (AUTO) 349 K/uL (130-430); RED BLOOD CELL COUNT(AUTO) 3.52 MIL/uL (4.2-6.2); WHITE BLOOD COUNT (AUTO) 13.2 K/uL (4.8-10.8)
[2020-04-18 07:45] LABS: CALCIUM 8.9 mg/dL (8.4-11.0); CREATININE 1.3 mg/dL (0.55-1.30); POTASSIUM 3.6 mmol/L (3.5-5.1)
[2020-04-18] MEDS: CEFEPIME 2 GM in D5W 100 ML IV SCH ×2 (09:55→21:02)
[2020-04-18] MEDS: DEXAMETHASONE SOD PHOSPHATE 10 MG/ML VIAL IVP SCH (12:09)
[2020-04-18 12:10] LABS: ERYTHROCYTE SEDIMENTATION RATE 105 MM/HR (0-15)
[2020-04-18 12:39] LABS: C-REACTIVE PROTEIN QUANT 10.4 mg/dL (0-0.5)
[2020-04-18] MEDS: AZITHROMYCIN 250 MG in NS 250 ML IV SCH (18:11)
[2020-04-18] MEDS: ONDANSETRON HCL 4 MG/2 ML VIAL IVP PRN (22:47)
[2020-04-18 23:24] LABS: BILIRUBIN,URINE NEGATIVE (NEGATIVE); CLARITY/URINE CLEAR (CLEAR); COLOR,URINE YELLOW (YELLOW); GLUCOSE,URINE 2+ (NEGATIVE); KETONES,URINE 2+ (NEGATIVE); LEUKOCYTE ESTERASE ,URINE NEGATIVE (NEGATIVE); NITRITE, URINE NEGATIVE (NEGATIVE); PH,URINE 5.5 (5.0-8.0); PROTEIN URINE NEGATIVE (NEGATIVE); UROBILINOGEN,URINE 0.2 (0.2-1.0)
[2020-04-18 23:29] LABS: BLOOD, URINE TRACE (NEGATIVE)
[2020-04-18] MEDS: INSULIN REGULAR, HUMAN 100 UNITS in NS 99 ML IV PRN ×2 (23:56)
[2020-04-19] VITALS (21 sets, daily range): BP systolic 111–150
[2020-04-19 00:22] LABS: BACTERIA,URINE FEW /HPF (None Seen); WBC,URINE 0-3 /HPF (0-3)
[2020-04-19] MEDS: D5W 1,000 ML IV SCH ×4 (01:24→21:11)
[2020-04-19] MEDS: metroNIDAZOLE 500 mg/NS 100 ML IV SCH ×3 (05:52→21:11)
[2020-04-19] MEDS: METOCLOPRAMIDE HCL 10 MG/2 ML VIAL IVP SCH ×4 (05:52→23:17)
[2020-04-19] MEDS: HEPARIN SODIUM,PORCINE 5,000 UNITS/ML VIAL SUBCUT SCH ×3 (05:53→21:23)
[2020-04-19 06:19] LABS: BASOPHILS % (AUTO) 0.2 % (0.0-2.0); EOSINOPHILS % (AUTO) 0.2 % (0.0-4.0); HEMOGLOBIN 10.2 g/dL (14.0-18.0); LYMPHOCYTES # (AUTO) 1.8 K/uL (1.0-5.5); LYMPHOCYTES % (AUTO) 14.2 % (20.5-51.5); MEAN CORPUSCULAR HEMOGLOBIN 28 pg (27-31); MEAN CORPUSCULAR HGB CONC 32 % (32-36); MEAN CORPUSCULAR VOLUME 87 fL (79.0-98.0); MONOCYTES # (AUTO) 1.4 K/uL (0.0-1.0); MONOCYTES % (AUTO) 10.8 % (1.7-9.3); NEUTROPHILS # (AUTO) 9.3 K/uL (1.8-7.7); NEUTROPHILS % (AUTO) 74.6 % (40.0-70.0); PLATELET COUNT (AUTO) 330 K/uL (130-430); RED BLOOD CELL COUNT(AUTO) 3.68 MIL/uL (4.2-6.2); RED CELL DISTRIBUTION WIDTH 13.8 % (9.0-15.0); WHITE BLOOD COUNT (AUTO) 12.5 K/uL (4.8-10.8)
[2020-04-19 07:53] LABS: ALBUMIN 1.7 g/dL (3.4-4.8); CALCIUM 8.6 mg/dL (8.4-11.0); CREATININE 1.06 mg/dL (0.55-1.30); POTASSIUM 3.1 mmol/L (3.5-5.1); TOTAL BILIRUBIN 0.4 mg/dL (0.0-1.0)
[2020-04-19 08:15] LABS: ERYTHROCYTE SEDIMENTATION RATE 55 MM/HR (0-15)
[2020-04-19] MEDS: CEFEPIME 2 GM in D5W 100 ML IV SCH ×2 (08:46→21:10)
[2020-04-19 10:21] LABS: C-REACTIVE PROTEIN QUANT 4.6 mg/dL (0-0.5)
[2020-04-19] MEDS: DEXAMETHASONE SOD PHOSPHATE 10 MG/ML VIAL IVP SCH (11:04)
[2020-04-19] MEDS ORDERED: 0.45% NACL 1,000 ML IV SCH (15:15)
[2020-04-19] MEDS ORDERED: KCL 40 mEq in 100 mL (PREMIX) 100 ML IV ONE (15:45)
[2020-04-19] MEDS ORDERED: POTASSIUM CHLORIDE 20 MEQ/PKT PACKET PO ONE (15:45)
[2020-04-19 18:09] LABS: ANION GAP 13 (5-15); CALCIUM 8.9 mg/dL (8.4-11.0); CHLORIDE 117 mmol/L (98-107); CREATININE 1.01 mg/dL (0.55-1.30); POTASSIUM 3.4 mmol/L (3.5-5.1); SODIUM SERUM 153 mmol/L (136-145); UREA NITROGEN, BLOOD 27 mg/dL (8-21)
[2020-04-19] MEDS: AZITHROMYCIN 250 MG in NS 250 ML IV SCH (18:16)
[2020-04-19 19:13] LABS: GFR AFRICAN AMERICAN 118 mL/min (>90)
[2020-04-19 19:26] LABS: GLUCOSE 412 mg/dL (70-99)
[2020-04-19 19:36] LABS: ACETONE, SERUM SMALL (NEGATIVE)
[2020-04-20] VITALS (11 sets, daily range): BP systolic 119–156
[2020-04-20] MEDS ORDERED: 0.45% NS 1,000 ML IV ONE (03:00)
[2020-04-20] MEDS: metroNIDAZOLE 500 mg/NS 100 ML IV SCH ×3 (05:35→22:00)
[2020-04-20] MEDS: HEPARIN SODIUM,PORCINE 5,000 UNITS/ML VIAL SUBCUT SCH ×3 (05:36→23:00)
[2020-04-20] MEDS: METOCLOPRAMIDE HCL 10 MG/2 ML VIAL IVP SCH ×3 (05:36→18:52)
[2020-04-20] MEDS: INSULIN REGULAR, HUMAN 100 UNITS/ML, 10 ML VIAL (humuLIN R) SUBCUT PRN ×3 (05:56→17:46)
[2020-04-20 06:39] LABS: BASOPHILS # (AUTO) 0.1 K/uL (0.0-0.2); BASOPHILS % (AUTO) 0.7 % (0.0-2.0); EOSINOPHILS # (AUTO) 0.1 K/uL (0.0-0.4); EOSINOPHILS % (AUTO) 0.8 % (0.0-4.0); HEMATOCRIT 31.8 % (36-54); HEMOGLOBIN 10.2 g/dL (14.0-18.0); LYMPHOCYTES # (AUTO) 1.4 K/uL (1.0-5.5); LYMPHOCYTES % (AUTO) 11.9 % (20.5-51.5); MEAN CORPUSCULAR HEMOGLOBIN 28 pg (27-31); MEAN CORPUSCULAR HGB CONC 32 % (32-36); MEAN CORPUSCULAR VOLUME 87 fL (79.0-98.0); MONOCYTES % (AUTO) 8.8 % (1.7-9.3); NEUTROPHILS # (AUTO) 9.2 K/uL (1.8-7.7); NEUTROPHILS % (AUTO) 77.8 % (40.0-70.0); PLATELET COUNT (AUTO) 277 K/uL (130-430); RED BLOOD CELL COUNT(AUTO) 3.64 MIL/uL (4.2-6.2); RED CELL DISTRIBUTION WIDTH 13.4 % (9.0-15.0); WHITE BLOOD COUNT (AUTO) 11.8 K/uL (4.8-10.8)
[2020-04-20 07:57] LABS: C-REACTIVE PROTEIN QUANT 2.8 mg/dL (0-0.5); CALCIUM 7.8 mg/dL (8.4-11.0); CREATININE 1.01 mg/dL (0.55-1.30); PHOSPHORUS 2.6 mg/dL (2.7-4.5); POTASSIUM 3.3 mmol/L (3.5-5.1)
[2020-04-20] MEDS: CEFEPIME 2 GM in D5W 100 ML IV SCH ×2 (08:49→21:42)
[2020-04-20] MEDS ORDERED: INSULIN GLARGINE 100 UNITS/ML 10 ML VIAL SUBCUT ONE (10:00)
[2020-04-20 10:29] LABS: ERYTHROCYTE SEDIMENTATION RATE 95 MM/HR (0-15)
[2020-04-20] MEDS: DEXAMETHASONE SOD PHOSPHATE 10 MG/ML VIAL IVP SCH (11:52)
[2020-04-20] MEDS ORDERED: ETOMIDATE 20 MG/ 10 ML VIAL (AMIDATE) IVP ONE ×2 (13:54)
[2020-04-20] MEDS ORDERED: ROCURONIUM BROMIDE 10 MG/ML (ZEMURON) IV ONE (13:54)
[2020-04-20] MEDS: 0.45% NACL 1,000 ML IV SCH ×2 (16:30→21:30)
[2020-04-20] MEDS ORDERED: K PHOS 15 MM in NS 250 ML IV ONE (18:00)
[2020-04-20] MEDS: AZITHROMYCIN 250 MG in NS 250 ML IV SCH (18:52)
[2020-04-20] MEDS: ONDANSETRON HCL 4 MG/2 ML VIAL IVP PRN (21:46)
[2020-04-21] VITALS: BP_SYST 138
[2020-04-21] MEDS: INSULIN REGULAR, HUMAN 100 UNITS/ML, 10 ML VIAL (humuLIN R) SUBCUT PRN ×7 (00:07→22:25)
[2020-04-21] MEDS: METOCLOPRAMIDE HCL 10 MG/2 ML VIAL IVP SCH ×4 (00:13→18:20)
[2020-04-21] MEDS: 0.45% NACL 1,000 ML IV SCH ×5 (03:12→22:26)
[2020-04-21] MEDS: metroNIDAZOLE 500 mg/NS 100 ML IV SCH ×3 (07:15→22:23)
[2020-04-21] MEDS: HEPARIN SODIUM,PORCINE 5,000 UNITS/ML VIAL SUBCUT SCH ×3 (07:16→22:24)
[2020-04-21 07:48] LABS: BASOPHILS # (AUTO) 0.1 K/uL (0.0-0.2); BASOPHILS % (AUTO) 0.6 % (0.0-2.0); EOSINOPHILS # (AUTO) 0.1 K/uL (0.0-0.4); EOSINOPHILS % (AUTO) 0.9 % (0.0-4.0); HEMATOCRIT 28.9 % (36-54); HEMOGLOBIN 9.4 g/dL (14.0-18.0); LYMPHOCYTES # (AUTO) 1.8 K/uL (1.0-5.5); LYMPHOCYTES % (AUTO) 13.9 % (20.5-51.5); MEAN CORPUSCULAR HEMOGLOBIN 28 pg (27-31); MEAN CORPUSCULAR HGB CONC 32 % (32-36); MEAN CORPUSCULAR VOLUME 87 fL (79.0-98.0); MONOCYTES # (AUTO) 0.8 K/uL (0.0-1.0); MONOCYTES % (AUTO) 6.1 % (1.7-9.3); NEUTROPHILS % (AUTO) 78.5 % (40.0-70.0); PLATELET COUNT (AUTO) 224 K/uL (130-430); RED BLOOD CELL COUNT(AUTO) 3.33 MIL/uL (4.2-6.2); RED CELL DISTRIBUTION WIDTH 13.3 % (9.0-15.0); WHITE BLOOD COUNT (AUTO) 12.7 K/uL (4.8-10.8)
[2020-04-21 08:19] LABS: ALBUMIN 1.7 g/dL (3.4-4.8); CALCIUM 7.5 mg/dL (8.4-11.0); CREATININE 0.79 mg/dL (0.55-1.30); PHOSPHORUS 2.8 mg/dL (2.7-4.5); TOTAL BILIRUBIN 0.3 mg/dL (0.0-1.0)
[2020-04-21 08:21] LABS: POTASSIUM 2.9 mmol/L (3.5-5.1)
[2020-04-21 08:35] LABS: C-REACTIVE PROTEIN QUANT 1.8 mg/dL (0-0.5)
[2020-04-21 08:37] VITALS: BP_SYST 115
[2020-04-21] MEDS: CEFEPIME 2 GM in D5W 100 ML IV SCH ×2 (08:37→22:22)
[2020-04-21] MEDS: INSULIN GLARGINE 100 UNITS/ML 10 ML VIAL SUBCUT SCH (08:37)
[2020-04-21 09:02] LABS: ERYTHROCYTE SEDIMENTATION RATE 81 MM/HR (0-15)
[2020-04-21] MEDS ORDERED: POTASSIUM CHLORIDE 40 MEQ in NS 250 ML IV ONE (10:00)
[2020-04-21] MEDS: ONDANSETRON HCL 4 MG/2 ML VIAL IVP PRN (10:30)
[2020-04-21] MEDS: DEXAMETHASONE SOD PHOSPHATE 10 MG/ML VIAL IVP SCH (11:20)
[2020-04-21 12:00] VITALS: BP_SYST 136
[2020-04-21 12:54] VITALS: BP_SYST 129
[2020-04-21] MEDS ORDERED: MAGNESIUM SULFATE 4 GM in D5W 250 ML IV ONE ×2 (14:15→16:00)
[2020-04-21 16:52] VITALS: BP_SYST 136
[2020-04-21] MEDS: AZITHROMYCIN 250 MG in NS 250 ML IV SCH (18:20)
[2020-04-21 20:16] VITALS: BP_SYST 129
[2020-04-22] MEDS: METOCLOPRAMIDE HCL 10 MG/2 ML VIAL IVP SCH ×4 (00:06→18:43)
[2020-04-22 00:46] VITALS: BP_SYST 139
[2020-04-22] MEDS: 0.45% NACL 1,000 ML IV SCH ×2 (03:40→13:57)
[2020-04-22] MEDS: ACETAMINOPHEN 325 MG TABLET PO PRN ×3 (03:40→22:20)
[2020-04-22] MEDS: INSULIN REGULAR, HUMAN 100 UNITS/ML, 10 ML VIAL (humuLIN R) SUBCUT PRN ×5 (03:43→22:16)
[2020-04-22] MEDS: HEPARIN SODIUM,PORCINE 5,000 UNITS/ML VIAL SUBCUT SCH ×3 (06:26→22:16)
[2020-04-22] MEDS: metroNIDAZOLE 500 mg/NS 100 ML IV SCH ×3 (06:53→22:13)
[2020-04-22 07:05] LABS: BASOPHILS % (AUTO) 0.2 % (0.0-2.0); EOSINOPHILS # (AUTO) 0.3 K/uL (0.0-0.4); EOSINOPHILS % (AUTO) 1.8 % (0.0-4.0); HEMATOCRIT 29.3 % (36-54); HEMOGLOBIN 9.7 g/dL (14.0-18.0); LYMPHOCYTES # (AUTO) 1.7 K/uL (1.0-5.5); LYMPHOCYTES % (AUTO) 11.6 % (20.5-51.5); MEAN CORPUSCULAR HEMOGLOBIN 28 pg (27-31); MEAN CORPUSCULAR HGB CONC 33 % (32-36); MEAN CORPUSCULAR VOLUME 86 fL (79.0-98.0); MONOCYTES # (AUTO) 0.5 K/uL (0.0-1.0); MONOCYTES % (AUTO) 3.7 % (1.7-9.3); NEUTROPHILS # (AUTO) 11.8 K/uL (1.8-7.7); NEUTROPHILS % (AUTO) 82.7 % (40.0-70.0); PLATELET COUNT (AUTO) 189 K/uL (130-430); RED BLOOD CELL COUNT(AUTO) 3.41 MIL/uL (4.2-6.2); RED CELL DISTRIBUTION WIDTH 12.4 % (9.0-15.0); WHITE BLOOD COUNT (AUTO) 14.2 K/uL (4.8-10.8)
[2020-04-22 07:53] LABS: CALCIUM 7.4 mg/dL (8.4-11.0); CREATININE 0.78 mg/dL (0.55-1.30)
[2020-04-22 08:00] VITALS: BP_SYST 141
[2020-04-22 08:12] LABS: POTASSIUM 2.7 mmol/L (3.5-5.1)
[2020-04-22 08:29] LABS: C-REACTIVE PROTEIN QUANT 1.1 mg/dL (0-0.5)
[2020-04-22 09:38] LABS: ERYTHROCYTE SEDIMENTATION RATE 64 MM/HR (0-15)
[2020-04-22] MEDS ORDERED: POTASSIUM CHLORIDE 20 MEQ/PKT PACKET PO ONE (10:15)
[2020-04-22] MEDS: INSULIN GLARGINE 100 UNITS/ML 10 ML VIAL SUBCUT SCH (10:58)
[2020-04-22] MEDS: CEFEPIME 2 GM in D5W 100 ML IV SCH ×2 (10:59→22:12)
[2020-04-22] MEDS: KCL 40 mEq in D5W 1000 mL 1,000 ML IV SCH ×2 (11:00→22:13)
[2020-04-22] MEDS ORDERED: KCL 40 mEq in 100 mL (PREMIX) 100 ML IV ONE (11:15)
[2020-04-22 12:00] VITALS: BP_SYST 132; BP_SYST 139
[2020-04-22] MEDS: DEXAMETHASONE SOD PHOSPHATE 10 MG/ML VIAL IVP SCH (13:31)
[2020-04-22 16:45] VITALS: BP_SYST 119
[2020-04-22 20:00] VITALS: BP_SYST 133
[2020-04-23] MEDS: METOCLOPRAMIDE HCL 10 MG/2 ML VIAL IVP SCH ×4 (00:01→17:28)
[2020-04-23 00:19] VITALS: BP_SYST 153
[2020-04-23] MEDS: 0.45% NACL 1,000 ML IV SCH ×3 (00:19→13:31)
[2020-04-23] MEDS: INSULIN REGULAR, HUMAN 100 UNITS/ML, 10 ML VIAL (humuLIN R) SUBCUT PRN ×4 (02:44→18:15)
[2020-04-23] MEDS: metroNIDAZOLE 500 mg/NS 100 ML IV SCH ×3 (06:58→22:00)
[2020-04-23] MEDS: HEPARIN SODIUM,PORCINE 5,000 UNITS/ML VIAL SUBCUT SCH ×3 (06:59→22:00)
[2020-04-23] MEDS: KCL 40 mEq in D5W 1000 mL 1,000 ML IV SCH ×2 (06:59→17:28)
[2020-04-23 08:00] VITALS: BP_SYST 126
[2020-04-23] MEDS: CEFEPIME 2 GM in D5W 100 ML IV SCH ×2 (10:03→21:12)
[2020-04-23] MEDS: INSULIN GLARGINE 100 UNITS/ML 10 ML VIAL SUBCUT SCH (10:04)
[2020-04-23 12:44] VITALS: BP_SYST 135
[2020-04-23 13:04] LABS: ALBUMIN 1.7 g/dL (3.4-4.8); C-REACTIVE PROTEIN QUANT 1.5 mg/dL (0-0.5); CREATININE 0.88 mg/dL (0.55-1.30); POTASSIUM 3.3 mmol/L (3.5-5.1); TOTAL BILIRUBIN 0.4 mg/dL (0.0-1.0)
[2020-04-23 13:12] LABS: BASOPHILS # (AUTO) 0.1 K/uL (0.0-0.2); BASOPHILS % (AUTO) 0.4 % (0.0-2.0); EOSINOPHILS # (AUTO) 0.2 K/uL (0.0-0.4); EOSINOPHILS % (AUTO) 1.1 % (0.0-4.0); HEMATOCRIT 27.9 % (36-54); HEMOGLOBIN 9.2 g/dL (14.0-18.0); LYMPHOCYTES # (AUTO) 1.3 K/uL (1.0-5.5); LYMPHOCYTES % (AUTO) 9.1 % (20.5-51.5); MEAN CORPUSCULAR HEMOGLOBIN 29 pg (27-31); MEAN CORPUSCULAR HGB CONC 33 % (32-36); MEAN CORPUSCULAR VOLUME 87 fL (79.0-98.0); MONOCYTES # (AUTO) 0.5 K/uL (0.0-1.0); MONOCYTES % (AUTO) 3.5 % (1.7-9.3); NEUTROPHILS # (AUTO) 11.8 K/uL (1.8-7.7); NEUTROPHILS % (AUTO) 85.9 % (40.0-70.0); PLATELET COUNT (AUTO) 146 K/uL (130-430); RED CELL DISTRIBUTION WIDTH 12.2 % (9.0-15.0); WHITE BLOOD COUNT (AUTO) 13.8 K/uL (4.8-10.8)
[2020-04-23] MEDS: DEXAMETHASONE SOD PHOSPHATE 10 MG/ML VIAL IVP SCH (13:32)
[2020-04-23 13:57] LABS: ERYTHROCYTE SEDIMENTATION RATE 58 MM/HR (0-15)
[2020-04-23] MEDS ORDERED: POTASSIUM CHLORIDE 20 MEQ TAB.PRT.SR PO ONE (15:45)
[2020-04-23 17:45] VITALS: BP_SYST 130
[2020-04-23 20:00] VITALS: BP_SYST 133
[2020-04-23] MEDS ORDERED: POTASSIUM CHLORIDE 20 MEQ TAB.PRT.SR ONE (20:34)
[2020-04-24] VITALS: BP_SYST 119
[2020-04-24 02:11] LABS: BILIRUBIN,URINE NEGATIVE (NEGATIVE); BLOOD, URINE 3+ (NEGATIVE); CLARITY/URINE CLOUDY (CLEAR); COLOR,URINE RED (YELLOW); GLUCOSE,URINE 3+ (NEGATIVE); KETONES,URINE 3+ (NEGATIVE); LEUKOCYTE ESTERASE ,URINE NEGATIVE (NEGATIVE); NITRITE, URINE NEGATIVE (NEGATIVE); PROTEIN URINE 1+ (NEGATIVE); UROBILINOGEN,URINE 0.2 (0.2-1.0)
[2020-04-24 02:26] LABS: BACTERIA,URINE FEW /HPF (None Seen); RBC,URINE >100 /HPF (0-3); WBC,URINE 0-3 /HPF (0-3)
[2020-04-24] MEDS: INSULIN REGULAR, HUMAN 100 UNITS/ML, 10 ML VIAL (humuLIN R) SUBCUT PRN ×4 (02:43→18:04)
[2020-04-24] MEDS: KCL 40 mEq in D5W 1000 mL 1,000 ML IV SCH (02:44)
[2020-04-24] MEDS: METOCLOPRAMIDE HCL 10 MG/2 ML VIAL IVP SCH ×4 (06:57→18:08)
[2020-04-24] MEDS: HEPARIN SODIUM,PORCINE 5,000 UNITS/ML VIAL SUBCUT SCH ×3 (06:57→22:00)
[2020-04-24] MEDS: metroNIDAZOLE 500 mg/NS 100 ML IV SCH ×3 (06:57→22:00)
[2020-04-24 07:46] LABS: BASOPHILS % (AUTO) 0.2 % (0.0-2.0); EOSINOPHILS # (AUTO) 0.1 K/uL (0.0-0.4); EOSINOPHILS % (AUTO) 0.9 % (0.0-4.0); HEMATOCRIT 27.9 % (36-54); HEMOGLOBIN 9.2 g/dL (14.0-18.0); LYMPHOCYTES % (AUTO) 15.7 % (20.5-51.5); MEAN CORPUSCULAR HEMOGLOBIN 28 pg (27-31); MEAN CORPUSCULAR HGB CONC 33 % (32-36); MEAN CORPUSCULAR VOLUME 86 fL (79.0-98.0); MONOCYTES # (AUTO) 0.8 K/uL (0.0-1.0); MONOCYTES % (AUTO) 6.1 % (1.7-9.3); NEUTROPHILS # (AUTO) 9.6 K/uL (1.8-7.7); NEUTROPHILS % (AUTO) 77.1 % (40.0-70.0); PLATELET COUNT (AUTO) 158 K/uL (130-430); RED BLOOD CELL COUNT(AUTO) 3.23 MIL/uL (4.2-6.2); RED CELL DISTRIBUTION WIDTH 12.5 % (9.0-15.0); WHITE BLOOD COUNT (AUTO) 12.4 K/uL (4.8-10.8)
[2020-04-24 08:00] VITALS: BP_SYST 123
[2020-04-24 08:11] LABS: CALCIUM 7.7 mg/dL (8.4-11.0); CREATININE 0.74 mg/dL (0.55-1.30); POTASSIUM 3.6 mmol/L (3.5-5.1)
[2020-04-24] MEDS: 0.45% NACL 1,000 ML IV SCH (08:19)
[2020-04-24 08:28] LABS: C-REACTIVE PROTEIN QUANT 2.2 mg/dL (0-0.5)
[2020-04-24] MEDS: CEFEPIME 2 GM in D5W 100 ML IV SCH ×2 (09:00→21:00)
[2020-04-24] MEDS: INSULIN GLARGINE 100 UNITS/ML 10 ML VIAL SUBCUT SCH (09:00)
[2020-04-24 09:59] LABS: ERYTHROCYTE SEDIMENTATION RATE 53 MM/HR (0-15)
[2020-04-24] MEDS: DEXAMETHASONE SOD PHOSPHATE 10 MG/ML VIAL IVP SCH (12:00)
[2020-04-24 12:10] VITALS: BP_SYST 121
[2020-04-24 16:13] VITALS: BP_SYST 123
[2020-04-24 20:00] VITALS: BP_SYST 116
[2020-04-25] MEDS: INSULIN REGULAR, HUMAN 100 UNITS/ML, 10 ML VIAL (humuLIN R) SUBCUT PRN ×2 (00:15→13:34)
[2020-04-25] MEDS: METOCLOPRAMIDE HCL 10 MG/2 ML VIAL IVP SCH ×3 (00:16→12:16)
[2020-04-25] MEDS: KCL 40 mEq in D5W 1000 mL 1,000 ML IV SCH ×2 (00:18→09:13)
[2020-04-25] MEDS: 0.45% NACL 1,000 ML IV SCH (05:35)
[2020-04-25] MEDS: metroNIDAZOLE 500 mg/NS 100 ML IV SCH ×2 (06:07→13:33)
[2020-04-25] MEDS: HEPARIN SODIUM,PORCINE 5,000 UNITS/ML VIAL SUBCUT SCH ×2 (06:07→13:12)
[2020-04-25 08:32] LABS: BASOPHILS % (AUTO) 0.3 % (0.0-2.0); EOSINOPHILS # (AUTO) 0.2 K/uL (0.0-0.4); EOSINOPHILS % (AUTO) 1.5 % (0.0-4.0); HEMATOCRIT 28.2 % (36-54); HEMOGLOBIN 9.2 g/dL (14.0-18.0); LYMPHOCYTES # (AUTO) 2.4 K/uL (1.0-5.5); LYMPHOCYTES % (AUTO) 21.8 % (20.5-51.5); MEAN CORPUSCULAR HEMOGLOBIN 28 pg (27-31); MEAN CORPUSCULAR HGB CONC 33 % (32-36); MEAN CORPUSCULAR VOLUME 87 fL (79.0-98.0); MONOCYTES # (AUTO) 0.9 K/uL (0.0-1.0); MONOCYTES % (AUTO) 7.8 % (1.7-9.3); NEUTROPHILS # (AUTO) 7.7 K/uL (1.8-7.7); NEUTROPHILS % (AUTO) 68.6 % (40.0-70.0); PLATELET COUNT (AUTO) 189 K/uL (130-430); RED BLOOD CELL COUNT(AUTO) 3.25 MIL/uL (4.2-6.2); RED CELL DISTRIBUTION WIDTH 12.5 % (9.0-15.0); WHITE BLOOD COUNT (AUTO) 11.2 K/uL (4.8-10.8)
[2020-04-25] MEDS: CEFEPIME 2 GM in D5W 100 ML IV SCH (09:14)
[2020-04-25] MEDS: INSULIN GLARGINE 100 UNITS/ML 10 ML VIAL SUBCUT SCH (09:17)
[2020-04-25 09:24] LABS: CALCIUM 7.8 mg/dL (8.4-11.0); CREATININE 0.64 mg/dL (0.55-1.30); POTASSIUM 3.7 mmol/L (3.5-5.1)
[2020-04-25 09:49] LABS: C-REACTIVE PROTEIN QUANT 1.5 mg/dL (0-0.5)
[2020-04-25 11:22] LABS: ERYTHROCYTE SEDIMENTATION RATE 53 MM/HR (0-15)
[2020-04-25] MEDS: DEXAMETHASONE SOD PHOSPHATE 10 MG/ML VIAL IVP SCH (12:15)
[2020-04-25 12:19] VITALS: BP_SYST 124
[2020-04-25] MEDS ORDERED: PIOG30TA70 PO (14:09)
[2020-04-25] MEDS ORDERED: INSU100V9 SUBCUT (14:09)
[2020-04-25] MEDS ORDERED: METF1000 PO (14:09)
[2020-04-25 15:43] VITALS: BP_SYST 124
[2020-04-25 16:22] VITALS: BP_SYST 115
== END 2020-04-25 17:30 | disposition home or self-care (01) | DRG 720 ==
LOC: SED 06:30 → SIC 12:41 → SMU 04-10 16:10 → STU 04-11 01:06 → SIC 04-11 11:50 → STU 04-20 15:58 → SMU 04-23 11:30
PROVIDERS: ADMIT Preventive Medicine Preventive Medicine/Occupational Environmental Medicine; ATTEND Preventive Medicine Preventive Medicine/Occupational Environmental Medicine
PROC: 5A09357 Assistance with Respiratory Ventilation, Less than 24 Consecutive Hours, Continuous Positive Airway Pressure (ICD-10-PCS; 2020-04-08)
PROC: 5A1945Z Respiratory Ventilation, 24-96 Consecutive Hours (ICD-10-PCS; principal; 2020-04-12)
PROC: 0BH17EZ Insertion of Endotracheal Airway into Trachea, Via Natural or Artificial Opening (ICD-10-PCS; 2020-04-12)
PROC: 5A1945Z Respiratory Ventilation, 24-96 Consecutive Hours (ICD-10-PCS; 2020-04-14)
PROC: 5A09357 Assistance with Respiratory Ventilation, Less than 24 Consecutive Hours, Continuous Positive Airway Pressure (ICD-10-PCS; 2020-04-14)
PROC: 0BH17EZ Insertion of Endotracheal Airway into Trachea, Via Natural or Artificial Opening (ICD-10-PCS; 2020-04-15)
PROC: 5A1945Z Respiratory Ventilation, 24-96 Consecutive Hours (ICD-10-PCS; 2020-04-16)
PROC: 02HV33Z Insertion of Infusion Device into Superior Vena Cava, Percutaneous Approach (ICD-10-PCS; 2020-04-16)
PROC: B548ZZA Ultrasonography of Superior Vena Cava, Guidance (ICD-10-PCS; 2020-04-16)
PROC: 5A1935Z Respiratory Ventilation, Less than 24 Consecutive Hours (ICD-10-PCS; 2020-04-17)
DX: A41.89 Other specified sepsis (principal); U07.1 COVID-19; E44.0 Moderate protein-calorie malnutrition; E11.10 Type 2 diabetes mellitus with ketoacidosis without coma; J12.89 Other viral pneumonia; E83.51 Hypocalcemia; E83.41 Hypermagnesemia; E88.09 Other disorders of plasma-protein metabolism, not elsewhere classified; Z68.24 Body mass index [BMI] 24.0-24.9, adult; N17.9 Acute kidney failure, unspecified; D64.9 Anemia, unspecified; R65.21 Severe sepsis with septic shock; E87.1 Hypo-osmolality and hyponatremia; E87.6 Hypokalemia; F79 Unspecified intellectual disabilities; E87.0 Hyperosmolality and hypernatremia; J12.82 Pneumonia due to coronavirus disease 2019; J96.00 Acute respiratory failure, unspecified whether with hypoxia or hypercapnia; E83.52 Hypercalcemia; E87.5 Hyperkalemia
CPT/HCPCS: 36415; 36600; 71045; 76376; 80048; 80053; 81000-TC; 82009-TC; 82803-TC; 82962; 83605; 83690-TC; 83735-TC; 84100-TC; 84484; 85025; 85610-TC; 85651-TC; 85730-TC; 86140; 87040-TC; 87070-TC; 87081; 87086; 87205-TC; 92610-GN; 93971; 94002; 94003; 94640; 94760; 96361; 96374; 96375; 96376; 97110-GP; 97112-GP; 97116-GP; 97163; 97530-GP; 99291; C1751; J0330; J0456; J0692; J0780; J1100; J1200; J1644; J1815; J1885; J2060; J2270; J2405; J2543; J2704; J2765; J3475; J3480; J3490; J7030; J7040; J7042; J7050; J7060; U0003